=== PATIENT | female | born 1965 | race Caucasian/White ===

== ENCOUNTER 2019-10-24 08:44 | Day surgery (SDC) | payer BC ==
[2019-10-24] MEDS ORDERED: MIDAZOLAM HCL 2 MG/2 ML SINGLE DOSE VIAL ONE (10:18)
[2019-10-24] MEDS ORDERED: oxyCODONE HCL 5 MG TABLET PO PRN (10:19)
[2019-10-24] MEDS ORDERED: ONDANSETRON 4 MG/2 ML VIAL IVPUSH PRN (10:19)
[2019-10-24] MEDS ORDERED: PROPOFOL 20 ML ONE (10:27)
[2019-10-24] MEDS ORDERED: LIDOCAINE HCL 2% (50ML VIAL) INF ONE (10:30)
[2019-10-24] MEDS ORDERED: LACTATED RINGERS SOLUTION 1,000 ML IV SCH (10:30)
[2019-10-24 11:43] VITALS: BP 100/58; PULSE 60; TEMP 97.9
== END 2019-10-24 11:45 | disposition home or self-care (01) ==
LOC: FASU 08:44
PROVIDERS: ATTEND Orthopaedic Surgery Hand Surgery
PROC: 0RBX0ZZ Excision of Left Finger Phalangeal Joint, Open Approach (ICD-10-PCS; 2019-10-24)
PROC: 0JBK0ZZ Excision of Left Hand Subcutaneous Tissue and Fascia, Open Approach (ICD-10-PCS; principal; 2019-10-24 10:38)
DX: D21.11 Benign neoplasm of connective and other soft tissue of right upper limb, including shoulder (principal); M19.042 Primary osteoarthritis, left hand
CPT/HCPCS: 88304-TC